=== PATIENT | male | born 1980 | race Caucasian/White ===

== ENCOUNTER 2018-11-13 20:18 | Emergency (ER) | payer OTHER ==
--- NOTE | 2018-11-13 20:42 | ED Physician Documentation ---
PD HPI UPPER EXT INJURY - Stated complaint Stated Complaint: R HAND DOG BITE - Chief complaint Chief Complaint: Laceration PD PAST MEDICAL HISTORY - Present Medications Home Medications: Ambulatory Orders Medication Instructions Recorded Confirmed Abacavir/Dolutegravir/Lamivudi 1 tab PO DAILY 11/13/18 11/13/18 [Triumeq 600-50-300 mg Tablet] Lisinopril 5 mg PO DAILY 11/13/18 11/13/18 - Allergies Allergies/Adverse Reactions: Allergies Allergy/AdvReac Type Severity Reaction Status Date / Time clindamycin Allergy Anaphylaxis Verified 11/13/18 20:32 Sulfa (Sulfonamide Allergy Rash Verified 11/13/18 20:32 Antibiotics) Results - Vitals Vitals: Vital Signs - 24 hr 11/13/18 20:26 Temperature 37.5 C Heart Rate 105 H Respiratory 16 Rate Blood Pressure 130/89 H O2 Saturation 100 Oxygen O2 Source Room air
--- NOTE | 2018-11-13 20:43 | ED Physician Documentation ---
PD HPI ANIMAL BITE - Stated complaint Stated Complaint: R HAND DOG BITE - Chief complaint Chief Complaint: Laceration - History obtained from History obtained from: Patient - History of Present Illness Location of injury(ies): Right hand Details of the event: Dog, Bite, Pet animal (roommate's pet), Well appearing, Immunized, Provoked (patient unintentionally startled the dog), Animal can be observed Timing - onset: How many hours ago (approxiately 7:50 PM tonight) Timing - details: Abrupt onset Pain level now: 5 Improved by: Rest Worsened by: Moving Associated symptoms: Swelling. No: Weakness, Numbness Recently seen: Not recently seen - Additional information Additional information: patient's roommate's dog bit patient's right hand tonight when patient unintentionally startled the dog. Patient is left-handed. patient is UTD on tetanus Review of Systems Skin: reports: Bite / sting Musculoskeletal: reports: Extremity pain, Extremity swelling Neurologic: denies: Focal weakness, Numbness PD PAST MEDICAL HISTORY - Past Medical History Past Medical History: Yes Cardiovascular: Hypertension - Present Medications Home Medications: Ambulatory Orders Medication Instructions Recorded Confirmed Abacavir/Dolutegravir/Lamivudi 1 tab PO DAILY 11/13/18 11/13/18 [Triumeq 600-50-300 mg Tablet] Amox/Clav 875/125 [Augmentin] 1 each PO Q12H #13 tablet 11/13/18 Lisinopril 5 mg PO DAILY 11/13/18 11/13/18 - Allergies Allergies/Adverse Reactions: Allergies Allergy/AdvReac Type Severity Reaction Status Date / Time clindamycin Allergy Anaphylaxis Verified 11/13/18 20:32 Sulfa (Sulfonamide Allergy Rash Verified 11/13/18 20:32 Antibiotics) PD ED PE NORMAL - Vitals Vital signs reviewed: Yes - General General: Alert and oriented X 3, No acute distress, Well developed/nourished - Neuro Neuro: No motor deficit, No sensory deficit, Other (LTS intact right hand including all fingertips. FROM all fingers. Full strength flexion and extension, including with isolation of MCP, PIP, and DIP joints for flexion) PD ED PE EXPANDED - Extremities Extremities: Tenderness (bony tednerness along 2nd and 3rd metacarpal of right hand) RUSS UE/Hands Visual: 1 - laceration (1 cm length with surrounding swelling), swelling, tenderness 2 - laceration (0.5 cm length) Results - Vitals Vitals: Vital Signs - 24 hr 11/13/18 11/13/18 20:26 22:25 Temperature 37.5 C Heart Rate 105 H 95 Respiratory 16 16 Rate Blood Pressure 130/89 H 142/87 H O2 Saturation 100 97 Oxygen O2 Source Room air - Rads (name of study) right hand xrays Radiology: Prelim report reviewed, See rad report PD MEDICAL DECISION MAKING - ED course Complexity details: reviewed results, re-evaluated patient, considered differential, d/w patient Departure - Departure Disposition: 01 Home, Self Care Clinical Impression: Dog bite of hand Condition: Good Instructions: ED Bite Dog Follow-Up: Mihai Ortega MD [Primary Care Provider] - (Call to arrange for an appointment for a wound check (ideally, you should have the wound reexamined in 2-3 days)) Prescriptions: Amox/Clav 875/125 [Augmentin] 1 each PO Q12H #13 tablet Discharge Date/Time: 11/13/18 22:26
[2018-11-13] MEDS ORDERED: AMOX/CLAV 875 MG/125 MG TABLET PO STA (20:53)
--- NOTE | 2018-11-13 21:37 | XRAY Report ---
Reason: dog bite, bony tenderness Procedure Date: 11/13/2018 Accession Number: [id number] / [id number] Procedure: XR - Hand 3 View RT CPT Code: FULL RESULT: EXAM: RIGHT HAND RADIOGRAPHY EXAM DATE: 11/13/2018 09:08 PM. CLINICAL HISTORY: Dog bite, bony tenderness. COMPARISON: None. TECHNIQUE: 3 views. FINDINGS: Bones: Normal. No fractures or bone lesions. Joints: Normal. No subluxations. Soft Tissues: Normal. No soft tissue swelling. IMPRESSION: Normal hand radiography. No fracture or foreign body evident. RADIA
[2018-11-13 22:26] VITALS: BP 142/87
== END 2018-11-13 22:26 | disposition home or self-care (01) ==
LOC: ED 20:18
DX: S61.451A Open bite of right hand, initial encounter (principal); W54.0XXA Bitten by dog, initial encounter; Y92.009 Unspecified place in unspecified non-institutional (private) residence as the place of occurrence of the external cause; I10 Essential (primary) hypertension
CPT/HCPCS: 73130; 99283; A9270

== ENCOUNTER 2020-06-03 14:06 | Emergency (ER) | payer MEDICAID, OTHER ==
[2020-06-03] MEDS ORDERED: AMOX/CLAV 875 MG/125 MG TABLET PO STA (15:09)
--- NOTE | 2020-06-03 15:09 | ED Physician Documentation ---
History of Present Illness - Stated complaint Stated Complaint: TOOTH PX - Chief complaint Chief Complaint: Heent - Additonal information Additional information: 39-year-old male presents to the emergency department for evaluation of her jaw pain mild facial swelling. Symptoms began about 1 week ago. At tooth site #2 he does have a tooth that is decayed and mostly missing in the socket. He has been having progressive swelling in this area and tenderness. Taking ibuprofen without relief of pain. He does report to me personally history of HIV as well as an ASD. Review of Systems Constitutional: denies: Fever, Chills Eyes: reports: Reviewed and negative Ears: reports: Reviewed and negative Nose: reports: Reviewed and negative Throat: reports: Dental pain / toothache, Oral lesions / sores Cardiac: reports: Reviewed and negative Respiratory: reports: Reviewed and negative GI: reports: Reviewed and negative : reports: Reviewed and negative Skin: reports: Reviewed and negative Musculoskeletal: reports: Reviewed and negative PD PAST MEDICAL HISTORY - Past Medical History Past Medical History: Yes Cardiovascular: Hypertension Respiratory: None Neuro: None Endocrine/Autoimmune: None GI: None : None HEENT: None Psych: None Musculoskeletal: None Derm: None - Past Surgical History Past Surgical History: No - Present Medications Home Medications: Ambulatory Orders Medication Instructions Recorded Confirmed Abacavir/Dolutegravir/Lamivudi 1 tab PO DAILY 11/13/18 11/13/18 [Triumeq 600-50-300 mg Tablet] Amox/Clav 875/125 [Augmentin] 1 each PO Q12H #13 tablet 11/13/18 lisinopriL [Lisinopril] 5 mg PO DAILY 11/13/18 11/13/18 Amox/Clav 875/125 [Augmentin] 1 each PO Q12H #20 tablet 06/03/20 Chlorhexidine Gluconate [Peridex] 10 ml MM BID #118 ml 06/03/20 - Allergies Allergies/Adverse Reactions: Allergies Allergy/AdvReac Type Severity Reaction Status Date / Time clindamycin Allergy Anaphylaxis Verified 06/03/20 14:18 Sulfa (Sulfonamide Allergy Rash Verified 06/03/20 14:18 Antibiotics) - Social History Does the pt smoke?: No Smoking Status: Never smoker Does the pt drink ETOH?: Yes Does the pt have substance abuse?: No - Immunizations Immunizations are current?: Yes Immunizations: TDAP >10years/unknown - POLST Patient has POLST: No PD ED PE EXPANDED - General General: Alert, No acute distress - HEENT HEENT: Atraumatic, Moist mucous membranes, Pharynx normal, Dental decay, Dental abscess (Tooth socket #2 decayed and missing. Mild gumline swelling and erythema. No obvious drainage.), Other (No trismus. Normal phonation. Uvula midline. No soft palate asymmetry.). No: Swollen tonsils, Tonsillar exudate - Cardiac Cardiac: Regular Rate, Regular Rhythm, Murmur Present, Radial strong equal, Cap refill < 2 sec - Respiratory Respiratory: Clear to ausultation cally. No: Distress, Labored Results - Vitals Vitals: Vital Signs - 24 hr 06/03/20 14:16 Temperature 36.6 C Heart Rate 89 Respiratory 16 Rate Blood Pressure 145/89 H O2 Saturation 99 Oxygen O2 Source Room air PD MEDICAL DECISION MAKING - ED course Complexity details: reviewed results, re-evaluated patient ED course: 39-year-old male who presents with a history of HIV disease comes to the ER with 1 week of right upper mouth pain. Tooth #2 is grossly decayed and mostly missing at the socket. There is some generalized gumline swelling without drainage. This gentleman will be started on Augmentin. I will also write a prescription for chlorhexidine mouthwash. If unable to fill he is advised to do salt water rinses 3 times a day. He does have an upcoming appointment in about 2 weeks with a dentist. Departure - Departure Disposition: 01 Home, Self Care Clinical Impression: Dental abscess Condition: Critical Instructions: ED Abscess Dental Prescriptions: Amox/Clav 875/125 [Augmentin] 1 each PO Q12H #20 tablet Chlorhexidine Gluconate [Peridex] 10 ml MM BID #118 ml Comments: Nigel you do have a dental abscess. I would like you to try to fill the prescription for the chlorhexidine mouthwash. If it is cost prohibitive please continue to do warm salt water rinses 3 times a day. I have written a prescription for some antibiotics. I would like you to fill them and begin taking as directed immediately. Please do not miss the follow-up appointment that you have with your dentist. If at any point you have increased facial swelling, any fevers redness cannot speak or swallow normally please return immediately to the ER.
[2020-06-03 15:17] VITALS: BP 142/98
== END 2020-06-03 16:08 | disposition home or self-care (01) ==
LOC: ED 14:06
DX: K04.7 Periapical abscess without sinus (principal); K02.9 Dental caries, unspecified; I10 Essential (primary) hypertension; Z21 Asymptomatic human immunodeficiency virus [HIV] infection status
CPT/HCPCS: 99282; 99283; A9270